=== PATIENT | female | born 1945 | race Caucasian/White ===

== ENCOUNTER 2018-11-23 16:28 | Emergency (ER) | payer MEDICARE, MEDICAID ==
[~2018-11-23] VITALS: Ht 162.6 cm; Wt 67.0 kg
[2018-11-23 16:54] LABS: BASO # 0.1 x10^3/uL (0.0-0.2); BASO % 1 % (0-3); EOS # 0.1 x10^3/uL (0.0-0.7); EOS % 1 % (0-3); HEMATOCRIT 34.5 % (36.0-47.0); LYMPH # 2.8 x10^3/uL (1.0-4.8); LYMPH % 26 % (24-48); MEAN CORPUSCULAR HEMOGLOBIN 26 pg (25-35); MEAN CORPUSCULAR HGB CONC 32 g/dL (31-37); MEAN CORPUSCULAR VOLUME 82 fL (79-100); MONO # 0.6 x10^3/uL (0.0-1.1); MONO % 6 % (0-9); NEUT % 66 % (31-73); PLATELET COUNT 307 x10^3/uL (140-400); RED CELL DISTRIBUTION WIDTH 15.6 % (11.5-14.5); WHITE BLOOD COUNT 10.5 x10^3/uL (4.0-11.0)
--- NOTE | 2018-11-23 16:59 | PHYS DOC ---
Adult General Chief Complaint Chief Complaint: CHEST PAIN HPI HPI 73-year-old female presents from the GI doctor's office with chest pain and bradycardia. The patient was there for normal follow up of her acid reflux and esophageal stricture. She was told the physician that she was having strong epigastric abdominal pain for the last 4-5 days. Much worse the last 2 days. She was also found to have a heart rate in the 40s. He was concerned and suggested she come to the emergency room for further regulation. The patient has a cardiac history with an DE in the past. She tells me that the pressure she feels today's not nearly as strong as when she had her heart attack. At this time, her pain level is 0. The patient has had a difficult time keeping down any food or even her pills. She had an esophageal dilation within the last few months. She is on blood pressure, heart and GI medications, but does not remember all of them. She gave her med list to her GI doctor. She denies fever or chills. Review of Systems Review of Systems Constitutional: Denies fever or chills [] Eyes: Denies change in visual acuity, redness, or eye pain [] HENT: Denies nasal congestion or sore throat [] Respiratory: Denies cough or shortness of breath [] Cardiovascular: No additional information not addressed in HPI [] GI: Epigastric abdominal pain, nausea, vomiting Denies bloody stools or diarrhea [] : Denies dysuria or hematuria [] Musculoskeletal: Denies back pain or joint pain [] Integument: Denies rash or skin lesions [] Neurologic: Denies headache, focal weakness or sensory changes [] Endocrine: Denies polyuria or polydipsia [] All other systems were reviewed and found to be within normal limits, except as documented in this note. Current Medications Current Medications Current Medications Medications (Trade) Dose Ordered Sig/Sajan Start Time Stop Time Status Last Admin Dose Admin Aspirin (Children'S Aspirin) 324 mg 1X ONCE 11/23/18 17:00 11/23/18 17:01 UNV Multi-Ingredient Mouthwash/Gargle (Gi Cocktail) 20 ml 1X ONCE 11/23/18 17:00 11/23/18 17:01 UNV Physical Exam Physical Exam Constitutional: Well developed, well nourished, no acute distress, non-toxic appearance. [] HENT: Normocephalic, atraumatic, bilateral external ears normal, oropharynx moist, no oral exudates, nose normal. [] Eyes: PERRLA, EOMI, conjunctiva normal, no discharge. [] Neck: Normal range of motion, no tenderness, supple, no stridor. [] Cardiovascular:Heart rate regular rhythm, no murmur [] Lungs & Thorax: Bilateral breath sounds clear to auscultation [] Abdomen: Bowel sounds normal, soft, no tenderness, no masses, no pulsatile masses. [] Skin: Warm, dry, no erythema, no rash. [] Back: No tenderness, no CVA tenderness. [] Extremities: No tenderness, no cyanosis, no clubbing, ROM intact, no edema. [] Neurologic: Alert and oriented X 3, normal motor function, normal sensory function, no focal deficits noted. [] Psychologic: Affect normal, judgement normal, mood normal. [] Current Patient Data Lab Results Laboratory Tests Test 11/23/18 16:37 White Blood Count 10.5 x10^3/uL (4.0-11.0) Red Blood Count 4.20 x10^6/uL (3.50-5.40) Hemoglobin 11.0 g/dL (12.0-15.5) L Hematocrit 34.5 % (36.0-47.0) L Mean Corpuscular Volume 82 fL (79-100) Mean Corpuscular Hemoglobin 26 pg (25-35) Mean Corpuscular Hemoglobin Concent 32 g/dL (31-37) Red Cell Distribution Width 15.6 % (11.5-14.5) H Platelet Count 307 x10^3/uL (140-400) Neutrophils (%) (Auto) 66 % (31-73) Lymphocytes (%) (Auto) 26 % (24-48) Monocytes (%) (Auto) 6 % (0-9) Eosinophils (%) (Auto) 1 % (0-3) Basophils (%) (Auto) 1 % (0-3) Neutrophils # (Auto) 7.0 x10^3uL (1.8-7.7) Lymphocytes # (Auto) 2.8 x10^3/uL (1.0-4.8) Monocytes # (Auto) 0.6 x10^3/uL (0.0-1.1) Eosinophils # (Auto) 0.1 x10^3/uL (0.0-0.7) Basophils # (Auto) 0.1 x10^3/uL (0.0-0.2) EKG EKG Sinus rhythm, rate 61, frequent PVCs, no ST elevation or depression.[] Radiology/Procedures Radiology/Procedures [] Impressions: Examination: PORTABLE CHEST 1V History: Chest pain Comparison/Correlation: None Findings: Portable frontal view chest was obtained. Heart size and pulmonary vasculature are normal. No infiltrate or pleural effusion. Biapical pleural thickening is noted. There is nodular thickening in particular at the lateral right upper thoracic level. No acute bony process. No definite pleural effusion. Right upper quadrant surgical clips are present. Impression: No infiltrate. Pleural thickening is noted. Nodular thickening in particular involve the lateral right upper thoracic level. Correlate with prior exams assess stability. Consider interval follow-up CT of the chest with contrast on a nonemergent basis for more complete assessment if stability is unknown. Electronically signed by: Renetta Goldberg MD (11/23/2018 4:56 PM) [facility] DICTATED AND SIGNED BY: RENETTA GOLDBERG MD DATE: 11/23/18 9061 CC: ERLINDA IGLESIAS DO ~ Course & Med Decision Making Course & Med Decision Making Pertinent Labs and Imaging studies reviewed. (See chart for details) The patient's EKG has PVCs but no signs of acute DE. Her chest x-rays negative for acute findings. See official read for other incidental findings. Labs are unremarkable except for a mildly elevated proBNP. Adjusted for age, I do not believe this is of concern. Her troponin is negative. We will try a GI cocktail to see if this helps with the symptoms. The patient continues to be pain-free in the ED. I discussed her findings and she was reassured. I gave her the option discharge to home versus being admitted for further trending of her troponin and observation. The patient feels comfortable going home. If her symptoms return or new symptoms develop, she will return to the emergency room. She is stable for discharge at this time. [] Dragon Disclaimer Dragon Disclaimer This electronic medical record was generated, in whole or in part, using a voice recognition dictation system. Departure Departure: Impression: Primary Impression: Chest pain Additional Impression: GERD (gastroesophageal reflux disease) Disposition: HOME, SELF-CARE Condition: STABLE Patient Instructions: Chest Pain (Nonspecific), [id number], Gastroesophageal Reflux Disease, Adult, [id number] Problem Qualifiers Primary Impression: Chest pain Chest pain type: unspecified Qualified Codes: R07.9 - Chest pain, unspecified Additional Impression: GERD (gastroesophageal reflux disease) Esophagitis presence: with esophagitis Qualified Codes: K21.0 - Gastro- esophageal reflux disease with esophagitis ERLINDA IGLESIAS DO Nov 23, 2018 16:59
[2018-11-23] MEDS ORDERED: ASPIRIN 81 MG TAB.CHEW PO ONE (17:00)
[2018-11-23] MEDS ORDERED: LIDO:MAALOX 1:1 20 ML SINGLE DOSE. PO ONE (17:00)
[2018-11-23 17:13] LABS: ALBUMIN 3.7 g/dL (3.4-5.0); CALCIUM 8.7 mg/dL (8.5-10.1); GFR 54.7; POTASSIUM 3.5 mmol/L (3.5-5.1); TOTAL BILIRUBIN 0.4 mg/dL (0.2-1.0); TOTAL PROTEIN 7.4 g/dL (6.4-8.2)
[2018-11-23 17:22] LABS: CLARITY,URINE CLEAR; COLOR,URINE YELLOW
[2018-11-23 17:23] LABS: BACTERIA,URINE FEW /HPF (0-FEW); BILIRUBIN,URINE NEG (NEG); GLUCOSE,URINE NEG (NEG); NITRITE,URINE NEG (NEG); RBC,URINE 0 /HPF (0-2); SQUAMOUS EPITHELIAL CELL,UR OCC /LPF; UROBILINOGEN,URINE 0.2 mg/dL (0.2 mg/dL); WBC,URINE OCC /HPF (0-4)
[2018-11-23 17:50] VITALS: BP 141/62
== END 2018-11-23 17:45 | disposition home or self-care (01) ==
LOC: ER 16:28
DX: K21.0 Gastro-esophageal reflux disease with esophagitis (principal); I25.2 Old myocardial infarction
CPT/HCPCS: 36415; 71045; 80053; 81001; 83880; 84484; 85025; 87086; 99285